=== PATIENT | male | born 1945 | race Caucasian/White ===

== ENCOUNTER 2019-02-11 09:06 | Day surgery (SDC) | payer OTHER ==
[~2019-02-11 09:06] MED LIST: BUPIVACAINE HCL 0.75% INJ/PF (7.5 MG/1 ML) 10 ML SDV OS PRN; KETOROLAC TROMETHAMINE 0.45% 4 DROP/0.4 ML DROPERETTE OS PRN; LIDOCAINE 4% INJ/PF (40 MG/ML) 5 ML AMPUL OS PRN
[2019-02-11] MEDS: TROPICAMIDE 1% OPH SOLN 15 ML OS PRN ×3 (10:15→10:35)
[2019-02-11] MEDS: BESIFLOXACIN HCL 0.6% OPH SUSP 5 ML BOTTLE OS PRN ×5 (10:15→11:25)
[2019-02-11] MEDS: CYCLOPENTOLATE 0.2%/PHENYLEPHRINE 1% OPH SOLN 2 ML OS PRN ×3 (10:15→10:35)
[2019-02-11] MEDS: TETRACAINE HCL 0.5% OPH SOLN 4 ML OS PRN ×3 (10:16→10:53)
[2019-02-11] MEDS ORDERED: MIDAZOLAM 2 MG/2 ML INJ ONE (10:52)
[2019-02-11] MEDS: LIDOCAINE 1% INJ-PF (10 MG/ML) 30 ML SDV ONE ×2 (11:10)
[2019-02-11] MEDS: CHONDR SU A NA/HYALUR INTRAOC KIT (SURGICARE) ONE ×2 (11:10)
[2019-02-11] MEDS: EPINEPHRINE INJ/PF 1 MG/1 ML AMPULE ONE ×2 (11:10)
[2019-02-11] MEDS: DORZOLAMIDE HCL 2%/TIMOLOL MALEAT 0.5% OPH SOLN 10 ML OS PRN ×3 (11:24→11:25)
--- NOTE | 2019-02-11 18:58 | Operative Report ---
Operative Report-[facility] Operative Report: DATE OF SURGERY: 02/11/2019 PREOPERATIVE DIAGNOSIS: CATARACT, LEFT EYE. POSTOPERATIVE DIAGNOSIS: CATARACT, LEFT EYE. PROCEDURE PERFORMED: PHACOEMULSIFICATION WITH POSTERIOR CHAMBER INTRAOCULAR LENS, LEFT EYE. Intraocular Lens Model : MX 10C010 18.5 Total Phaco Time: 0.62 CDE SURGEON: PATRICE ORDONEZ MD ANESTHESIA: TOPICAL WITH MAC. INDICATIONS FOR SURGERY: Difficulty with small print PROCEDURE: The patient was brought to the Operating Room and placed in a seated position. a lid speculum was placed in the eye. the 0.180, and 270 degree axis of the cornea was marked with a toric marker. the patien was place in a reclining position. Following tetracaine drops, topical anesthesia was administered. This consisted of instrument wipe pledgets soaked in a solution of 4% Xylocaine mixed with 0.75% Marcaine in a 1:2 ratio. A 2 x 1 cm pledget was placed in the superior fornix. A 1 x 1 cm pledget was placed in the inferior fornix. The eye was patched shut for 5 minutes. The patch was removed. The eye was sterilely prepped and draped in the usual manner. Lid speculum was placed in the eye. The pledgets were removed. 4-0 black silk sutures were placed around the superior and the inferior rectus muscles to be used as traction. A conjunctival peritomy was made at the 10 o'clock position. Hemostasis was obtained with bipolar cautery. A posterior limbal groove was created using a crescent knife and dissected anteriorly towards the cornea. A sharp point blade was used to create a paracentesis site at the 2 o'clock position. 0.2 cc non preserved Lidocaine was injected into the anterior chamber. A 2.4 mm keratome was used to enter the anterior chamber through the groove. Viscoelastic was injected into the anteriorchamber. An anterior capsulotomy was performed using Utrata forceps in acapsulorrhexis fashion. Hydrodissection and hydrodelineation were performed. Phacoemulsification was performed in [id number]-[id number] technique. Following this, the I/A unit was used to remove residual cortex. Viscoelastic was injected into the capsular bag. The Intraocular lens was placed in the capsular bag. The 15 degree axis of the eye was marked using a toric marker and the previously marked sites as reference. The lens was centered at this axis. The I/A unit was used to remove residual viscoelastic. The wound was seen to be watertight under high and low pressure, and no sutures were placed. The intraocular lens was well centered. The pressure was adjusted in the eye to normal pressure. The 4-0 black silk sutures and lid speculum were removed. The eye was shielded after Besivance and Cosopt drops were placed. The patient tolerated the procedure well and was sent to the Recovery Room in good condition.
== END 2019-02-11 12:15 | disposition home or self-care (01) ==
LOC: SC 09:06
PROVIDERS: ATTEND Ophthalmology
DX: H25.813 Combined forms of age-related cataract, bilateral (principal); H43.813 Vitreous degeneration, bilateral; H52.4 Presbyopia; H04.123 Dry eye syndrome of bilateral lacrimal glands; Z87.891 Personal history of nicotine dependence; E78.00 Pure hypercholesterolemia, unspecified; I25.2 Old myocardial infarction; I11.9 Hypertensive heart disease without heart failure; Z79.899 Other long term (current) drug therapy; Z79.02 Long term (current) use of antithrombotics/antiplatelets; Z79.01 Long term (current) use of anticoagulants
CPT/HCPCS: 66984; 00142; J2250; J3490 ×5; J0171; 142; V2787

== ENCOUNTER 2019-03-09 09:46 | Day surgery (SDC) | payer OTHER ==
[~2019-03-09 09:46] MED LIST changes: +BUPIVACAINE HCL 0.75% INJ/PF (7.5 MG/1 ML) 10 ML SDV OD PRN; -BUPIVACAINE HCL 0.75% INJ/PF (7.5 MG/1 ML) 10 ML SDV OS PRN; +KETOROLAC TROMETHAMINE 0.45% 4 DROP/0.4 ML DROPERETTE OD PRN; -KETOROLAC TROMETHAMINE 0.45% 4 DROP/0.4 ML DROPERETTE OS PRN; +LIDOCAINE 4% INJ/PF (40 MG/ML) 5 ML AMPUL OD PRN; -LIDOCAINE 4% INJ/PF (40 MG/ML) 5 ML AMPUL OS PRN
[2019-03-09] MEDS ORDERED: MIDAZOLAM 2 MG/2 ML INJ ONE (10:34)
[2019-03-09] MEDS: TETRACAINE HCL 0.5% OPH SOLN 4 ML OD PRN ×3 (11:00→11:39)
[2019-03-09] MEDS: CYCLOPENTOLATE 0.2%/PHENYLEPHRINE 1% OPH SOLN 2 ML OD PRN ×3 (11:00→11:20)
[2019-03-09] MEDS: BESIFLOXACIN HCL 0.6% OPH SUSP 5 ML BOTTLE OD PRN ×4 (11:00→12:09)
[2019-03-09] MEDS: TROPICAMIDE 1% OPH SOLN 15 ML OD PRN ×3 (11:00→11:20)
[2019-03-09] MEDS: CHONDR SU A NA/HYALUR INTRAOC KIT (SURGICARE) ONE ×2 (11:52)
[2019-03-09] MEDS: LIDOCAINE 1% INJ-PF (10 MG/ML) 30 ML SDV ONE ×2 (11:52)
[2019-03-09] MEDS: EPINEPHRINE INJ/PF 1 MG/1 ML AMPULE ONE ×2 (11:52)
[2019-03-09] MEDS: DORZOLAMIDE HCL 2%/TIMOLOL MALEAT 0.5% OPH SOLN 10 ML OD PRN ×2 (12:09)
--- NOTE | 2019-03-09 16:40 | Operative Report ---
Operative Report-[facility] Operative Report: DATE OF SURGERY: September 06, 2018 PREOPERATIVE DIAGNOSIS: CATARACT, RIGHT EYE. POSTOPERATIVE DIAGNOSIS: CATARACT,RIGHT EYE. PROCEDURE PERFORMED: PHACOEMULSIFICATION WITH TORIC POSTERIOR CHAMBER INTRAOCULAR LENS, RIGHT EYE. Intraocular Lens Model : MX 60 T2 200 19.0 Total Phaco Time: [] SURGEON: PATRICE ORDONEZ MD ANESTHESIA: TOPICAL WITH MAC. INDICATIONS FOR SURGERY: Difficulty with night driving PROCEDURE: The patient was brought to the Operating Room and placed in a seated position. a lid speculum was placed in the eye. the 0.180, and 270 degree axis of the cornea was marked with a toric marker. the patien was place in a reclining position. Following tetracaine drops, topical anesthesia was administered. This consisted of instrument wipe pledgets soaked in a solution of 4% Xylocaine mixed with 0.75% Marcaine in a 1:2 ratio. A 2 x 1 cm pledget was placed in the superior fornix. A 1 x 1 cm pledget was placed in the inferior fornix. The eye was patched shut for 5 minutes. The patch was removed. The eye was sterilely prepped and draped in the usual manner. Lid speculum was placed in the eye. The pledgets were removed. 4-0 black silk sutures were placed around the superior and the inferior rectus muscles to be used as traction. A conjunctival peritomy was made at the 10 o'clock position. Hemostasis was obtained with bipolar cautery. A posterior limbal groove was created using a crescent knife and dissected anteriorly towards the cornea. A sharp point blade was used to create a paracentesis site at the 2 o'clock position. 0.2 cc non preserved Lidocaine was injected into the anterior chamber. A 2.4 mm keratome was used to enter the anterior chamber through the groove. Viscoelastic was injected into the anteriorchamber. An anterior capsulotomy was performed using Utrata forceps in acapsulorrhexis fashion. Hydrodissection and hydrodelineation were performed. Phacoemulsification was performed in [id number] technique. Following this, the I/A unit was used to remove residual cortex. Viscoelastic was injected into the capsular bag. The Intraocular lens was placed in the capsular bag. The 175 degree axis of the eye was marked using a toric marker and the previously marked sites as reference. The lens was centered at this axis. The I/A unit was used to remove residual viscoelastic. The wound was seen to be watertight under high and low pressure, and no sutures were placed. The intraocular lens was well centered. The pressure was adjusted in the eye to normal pressure. The 4-0 black silk sutures and lid speculum were removed. The eye was shielded after Besivance and Cosopt drops were placed. The patient tolerated the procedure well and was sent to the Recovery Room in good condition.
== END 2019-03-09 12:52 ==
LOC: SC 09:46
PROVIDERS: ATTEND Ophthalmology
DX: H25.811 Combined forms of age-related cataract, right eye (principal); Z96.1 Presence of intraocular lens; I10 Essential (primary) hypertension; K21.9 Gastro-esophageal reflux disease without esophagitis; I48.91 Unspecified atrial fibrillation; Z79.02 Long term (current) use of antithrombotics/antiplatelets
CPT/HCPCS: 66984; V2787; J2250; J3490 ×5; J0171

== ENCOUNTER 2019-11-26 12:19 | Emergency (ER) | payer OTHER ==
--- NOTE | 2019-11-26 13:20 | ER Document Report ---
ED Medical Screen (RME) - General Chief Complaint: Finger Injury Stated Complaint: RIGHT PINKY FINGER PAIN,SWELLING Time Seen by Provider: 11/26/19 13:11 Primary Care Provider: [facility] [Primary Care Provider] - Follow up as needed TRAVEL OUTSIDE OF THE [place] IN LAST 30 DAYS: No - HPI Notes: 11/26/19 13:17 74 male with a history of hypertension hypercholesterolemia hypothyroidism, A. fib on Eliquis presents to the emergency room from [facility] for complaints of right fifth finger "dissolved". Patient states that he has a "bone infection was sent over for intravenous antibiotics". Patient states that he noticed about 2 days ago his right fifth finger with redness, swelling and pain. Denies any trauma or injury. Has not tried any [id number]-[id number] medications. Pain is 3 out of 5. Has a history of peripheral neuropathies in his right hand. Denies any fevers or chills, chest pain, shortness of breath. I have greeted and performed a rapid initial assessment of this patient. A comprehensive ED assessment and evaluation of the patient, analysis of test results and completion of the medical decision making process will be conducted by additional ED providers. PHYSICAL EXAMINATION: GENERAL: Well-appearing, well-nourished and in no acute distress.ait. SKIN: Warm, Dry, normal turgor, no rashes or lesions noted. Right fifth finger in flexed state with erythema induration warmth to touch at distal tip that extends up to the PIP. pain with palpation. cap refill < 3 seconds. Pain with active extension - Related Data Allergies/Adverse Reactions: Sulfa (Sulfonamide Antibiotics) Adverse Reaction (Verified 11/26/19 13:11) Past Medical History - Social History Chew tobacco use (# tins/day): No Drug Abuse: None - Past Medical History Cardiac Medical History: Reports: Hx Heart Attack - 06/2017, Hx Hypertension Pulmonary Medical History: Denies: Hx Asthma Neurological Medical History: Denies: Hx Cerebrovascular Accident, Hx Seizures GI Medical History: Denies: Hx Hepatitis, Hx Hiatal Hernia, Hx Ulcer Infectious Medical History: Denies: Hx Hepatitis Past Surgical History: Denies: Hx Open Heart Surgery - STENTS X4, Hx Pacemaker Physical Exam - Vital signs Vitals: Temp Pulse Resp BP Pulse Ox 98.5 F 94 18 130/68 H 97 11/26/19 12:27 11/26/19 12:27 11/26/19 12:27 11/26/19 12:27 11/26/19 12:27 Course - Vital Signs Vital signs: Temp Pulse Resp BP Pulse Ox 98.5 F 94 18 130/68 H 97 11/26/19 12:27 11/26/19 12:27 11/26/19 12:27 11/26/19 12:27 11/26/19 12:27 Doctor's Discharge - Discharge [facility]errals: [facility] [[facility]] - Follow up as needed
[2019-11-26 13:38] LABS: ABSOLUTE LYMPHOCYTES (AUTO) 1.1 10^3/uL (0.5-4.7); ABSOLUTE MONOCYTES (AUTO) 0.5 10^3/uL (0.1-1.4); ABSOLUTE NEUT (AUTO) 4.4 10^3/uL (1.7-8.2); BASOPHILS % (AUTO) 0.8 % (0-2); EOSINOPHILS % (AUTO) 0.7 % (0-6); HEMATOCRIT 41.1 % (37.9-51.0); HEMOGLOBIN 14.6 g/dL (13.5-17.0); LYMPHOCYTES % (AUTO) 18.3 % (13-45); MEAN CORPUSCULAR HEMOGLOBIN 32.2 pg (27.0-33.4); MEAN CORPUSCULAR HGB CONC 35.4 g/dL (32.0-36.0); MEAN CORPUSCULAR VOLUME 91 fl (80-97); MONOCYTES % (AUTO) 8.7 % (3-13); PLATELET COUNT 139 10^3/uL (150-450); RED BLOOD COUNT 4.52 10^6/uL (4.35-5.55); RED CELL DISTRIBUTION WIDTH 14.3 % (11.5-14.0); SEGMENTED NEUTROPHILS % (AUTO) 71.5 % (42-78); TOTAL CELLS COUNTED % (AUTO) 100 %; WHITE BLOOD COUNT 6.1 10^3/uL (4.0-10.5)
[2019-11-26 14:03] LABS: ALBUMIN 4.5 g/dL (3.5-5.0); ALKALINE PHOSPHATASE 83 U/L (38-126); ANION GAP 8 (5-19); ASPARTATE AMINO TRANSFERASE 26 U/L (17-59); BILIRUBIN,TOTAL 2.3 mg/dL (0.2-1.3); BLOOD UREA NITROGEN 14 mg/dL (7-20); CALCIUM 9.5 mg/dL (8.4-10.2); CARBON DIOXIDE 30 mmol/L (22-30); CHLORIDE 99 mmol/L (98-107); GLUCOSE 101 mg/dL (75-110); POTASSIUM 4.2 mmol/L (3.6-5.0); TOTAL PROTEIN 7.5 g/dL (6.3-8.2)
--- NOTE | 2019-11-26 14:27 | RADIOLOGY REPORT (SQ) ---
EXAM DESCRIPTION: FINGER RIGHT IMAGES COMPLETED DATE/TIME: 11/26/2019 1:33 pm REASON FOR STUDY: 5th finger pain, swelling x 2 days COMPARISON: None. NUMBER OF VIEWS: Three views of the right pinky finger. LIMITATIONS: Pinky finger is slightly flexed FINDINGS: Osteopenic. DIP joint arthropathy. There are erosions and cysts particularly in the dist al aspect of the middle phalanx. Lateral view shows dorsal prominent osteophyte formation as well. There is regional soft tissue swelling no associated fracture. No radiopaque foreign body. OTHER: No other significant finding. IMPRESSION: 1. Arthropathy in the DIP joint looks inflammatory. There is degenerative spurring, this could repre sent erosive osteoarthritis. The differential also includes inflammatory arthritis/gout, however. I nfection is in the differential but felt to be less likely. TECHNICAL DOCUMENTATION: JOB ID: [id number] Reading location - IP/workstation name: [email or web address]
[2019-11-26] MEDS ORDERED: CEFTRIAXONE INJ 1000 MG VIAL IM ONE (15:20)
--- NOTE | 2019-11-26 15:26 | ER Document Report ---
ED General - General Chief Complaint: Finger Injury Stated Complaint: RIGHT PINKY FINGER PAIN,SWELLING Time Seen by Provider: 11/26/19 13:11 Primary Care Provider: [facility] [Primary Care Provider] - Follow up as needed Notes: Patient is a 74-year-old white male with no significant past medical history who presents to the emergency department with a chief complaint of swollen I have treated and performed a rapid initial assessment of this patient. A comprehensive ED assessment and evaluation of the patient, analysis of test results and completion of medical decision making process will be conducted by additional ED providers. PHYSICAL EXAMINATION: GENERAL: Well-appearing, well-nourished and in no acute distress. A&Ox4. Answers questions appropriately. Right fifth digit that he noticed 2 days ago. 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 He states that he was doing some working with his hands a few days ago but does not recall any specific injuries. He reports that 2 days ago he noticed the finger was red and swollen. He states he subsequently bumped it on the edge of the fridge after the redness and swelling began causing a small abrasion over the dorsal surface of the DIP. He states there is been no drainage. He admits that there is some tenderness but due to lack of sensation from prior nerve injury he does not feel much pain. He reports no fevers chills or night sweats. No numbness tingling or weakness outside of his chronic neurological issues. States he was seen in urgent care prior to arrival had x- rays and they were concerned for osteomyelitis so they sent in for evaluation. TRAVEL OUTSIDE OF THE [place] IN LAST 30 DAYS: No - Related Data Allergies/Adverse Reactions: Sulfa (Sulfonamide Antibiotics) Adverse Reaction (Verified 11/26/19 13:11) Past Medical History - Social History Smoking Status: Never Smoker Chew tobacco use (# tins/day): No Drug Abuse: None Family History: Reviewed & Not Pertinent Patient has homicidal ideation: No - Past Medical History Cardiac Medical History: Reports: Hx Heart Attack - 06/2017, Hx Hypertension Pulmonary Medical History: Denies: Hx Asthma Neurological Medical History: Denies: Hx Cerebrovascular Accident, Hx Seizures GI Medical History: Denies: Hx Hepatitis, Hx Hiatal Hernia, Hx Ulcer Infectious Medical History: Denies: Hx Hepatitis Past Surgical History: Denies: Hx Open Heart Surgery - STENTS X4, Hx Pacemaker Review of Systems - Review of Systems Constitutional: denies: Fever EENT: denies: Throat pain Cardiovascular: denies: Chest pain Respiratory: denies: Short of breath Gastrointestinal: denies: Abdominal pain, Diarrhea, Nausea, Vomiting, Constipation Musculoskeletal: Joint pain Skin: Change in color Neurological/Psychological: denies: Headaches Physical Exam - Vital signs Vitals: Temp Pulse Resp BP Pulse Ox 98.5 F 94 18 130/68 H 97 11/26/19 12:11/26/19 12:11/26/19 12:11/26/19 12:11/26/19 12:27 - General General appearance: Appears well, Alert In distress: None - Respiratory Respiratory status: No respiratory distress Chest status: Nontender Breath sounds: Normal Chest palpation: Normal - Cardiovascular Rhythm: Regular Heart sounds: Normal auscultation - Extremities Hand: Other - Slight flexion of the right fifth digit the patient reports is chronic from his prior nerve injury in the forearm. No worsening in his chronic flexion deformity. The digit is moderately edematous with erythema. No evidence of felon or paronychia. Consistent with a cellulitis appearance. There is some pain with movement. Good capillary refill distally. No proximal streaking is noted. No fluid collection appreciated. - Neurological Neuro grossly intact: Yes Cognition: Normal Orientation: AAOx4 - Psychological Associated symptoms: Normal affect, Normal mood - Skin Skin Temperature: Warm Skin Moisture: Dry Skin Color: Other - As described above Course - Re-evaluation Re-evalutation: 11/26/19 15:24 Normal white count. Normal lactic acid. Per x-ray and read from radiologist coupled with patient's history significantly doubt osteomyelitis. Questionable early cellulitis with underlying non-associated inflammatory arthritis pr tino. Gout is also in the etiology. We will treat with antibiotics and Indocin. He will follow-up with his doctors in 48 hours for reevaluation. Advised to return here or any ER immediately with any new, persistent or worsening symptoms. He verbalized understood and agreed. - Vital Signs Vital signs: Temp Pulse Resp BP Pulse Ox 98.5 F 94 18 130/68 H 97 11/26/19 12:11/26/19 12:11/26/19 12:11/26/19 12:11/26/19 12:27 - Laboratory Result Diagrams: 11/26/19 13:25 11/26/19 13:25 Laboratory results interpreted by me: 11/26/19 11/26/19 13:25 13:25 RDW 14.3 H Plt Count 139 L Sodium 136.5 L Total Bilirubin 2.3 H Discharge - Discharge Clinical Impression: Cellulitis Qualifiers: Site of cellulitis: unspecified site Qualified Code(s): L03.90 - Cellulitis, unspecified Condition: Stable Disposition: HOME, SELF-CARE Instructions: Cellulitis ([facility]), Gout ([facility]) Additional Instructions: Follow-up with your regular doctor in 2 to 3 days for reevaluation. Return here or any ER immediately with any new, persistent or worsening symptoms. Prescriptions: Indomethacin [Indocin 50 mg Capsule] 50 mg PO TID #15 capsule Cephalexin Monohydrate [Keflex 500 mg Capsule] 500 mg PO Q6H 7 Days #40 capsule [facility]errals: [facility] [Primary Care [facility]] - Follow up as needed
[2019-11-26] MEDS ORDERED: LIDOCAINE 1% INJ-PF (10 MG/ML) 30 ML SDV ONE (17:13)
[2019-11-26 17:17] VITALS: BP 116/82
== END 2019-11-26 17:55 | disposition home or self-care (01) ==
LOC: ER 12:19
DX: L03.90 Cellulitis, unspecified (principal); M79.644 Pain in right finger(s); M25.50 Pain in unspecified joint; I10 Essential (primary) hypertension
CPT/HCPCS: 99283; 96372; 36415; 83605; 85025; 80053; 73140; J3490; J0696

== ENCOUNTER 2019-12-02 15:49 | Inpatient (IN) | payer OTHER, MEDICARE ==
--- NOTE | 2019-12-02 17:12 | ER Document Report ---
ED Medical Screen (RME) - General Chief Complaint: Hand Pain Stated Complaint: RIGHT FINGER INFECTION Time Seen by Provider: 12/02/19 17:07 Primary Care Provider: TIM[facility]U [Primary Care Provider] - Follow up as needed Mode of Arrival: Ambulatory Information source: Patient Notes: 74-year-old male male presented to ED with very infected right fifth finger. He states he was working with metal on Friday he thought he might of got a piece of metal in it went to the urgent care they x-rayed told him there was no metal in it and sent him home with with no medications. On 25 November he came into the emergency room he had x-ray blood work were done and patient was started on antibiotics. He was told that if he had any increasing pain or increasing symptoms he needed to follow-up with his primary care who was the [facility]. He said he is been taking the antibiotics as prescribed he is not allowed to take to the Indocin due to his cardiac history as cardiac allergies told him not to. He has no movement to the finger now he can move it at the hand but he is finger is stiff very swollen and very inflamed. We will get further blood work and x-ray and have him examined by another provider. I have greeted and performed a rapid initial assessment of this patient. A comprehensive ED assessment and evaluation of the patient, analysis of test results and completion of medical decision making process will be conducted by an additional ED providers. TRAVEL OUTSIDE OF THE [place] IN LAST 30 DAYS: No - Related Data Allergies/Adverse Reactions: Sulfa (Sulfonamide Antibiotics) Adverse Reaction (Verified 11/26/19 13:11) Past Medical History - Past Medical History Cardiac Medical History: Reports: Hx Heart Attack - 06/2017, Hx Hypertension Pulmonary Medical History: Denies: Hx Asthma Neurological Medical History: Denies: Hx Cerebrovascular Accident, Hx Seizures GI Medical History: Denies: Hx Hepatitis, Hx Hiatal Hernia, Hx Ulcer Infectious Medical History: Denies: Hx Hepatitis Past Surgical History: Denies: Hx Open Heart Surgery - STENTS X4, Hx Pacemaker Physical Exam - Vital signs Vitals: Temp Pulse Resp BP 98.4 F 73 18 115/63 12/02/19 16:41 12/02/19 16:41 12/02/19 16:41 12/02/19 16:41 Course - Vital Signs Vital signs: Temp Pulse Resp BP Pulse Ox 98.4 F 73 18 115/63 12/02/19 16:41 12/02/19 16:41 12/02/19 16:41 12/02/19 16:41 Doctor's Discharge - Discharge [facility]errals: [facility] [[facility]] - Follow up as needed
[2019-12-02 17:45] LABS: ABSOLUTE EOSINOPHILS # (AUTO) 0.1 10^3/uL (0.0-0.6); ABSOLUTE LYMPHOCYTES (AUTO) 1.6 10^3/uL (0.5-4.7); ABSOLUTE MONOCYTES (AUTO) 0.6 10^3/uL (0.1-1.4); ABSOLUTE NEUT (AUTO) 5.3 10^3/uL (1.7-8.2); BASOPHILS % (AUTO) 0.5 % (0-2); EOSINOPHILS % (AUTO) 1.6 % (0-6); HEMATOCRIT 42.9 % (37.9-51.0); HEMOGLOBIN 15.1 g/dL (13.5-17.0); LYMPHOCYTES % (AUTO) 20.8 % (13-45); MEAN CORPUSCULAR HEMOGLOBIN 32.2 pg (27.0-33.4); MEAN CORPUSCULAR HGB CONC 35.2 g/dL (32.0-36.0); MEAN CORPUSCULAR VOLUME 91 fl (80-97); MONOCYTES % (AUTO) 8.2 % (3-13); PLATELET COUNT 173 10^3/uL (150-450); RED CELL DISTRIBUTION WIDTH 14.2 % (11.5-14.0); SEGMENTED NEUTROPHILS % (AUTO) 68.9 % (42-78); TOTAL CELLS COUNTED % (AUTO) 100 %; WHITE BLOOD COUNT 7.6 10^3/uL (4.0-10.5)
--- NOTE | 2019-12-02 17:52 | RADIOLOGY REPORT (SQ) ---
EXAM DESCRIPTION: HAND RIGHT 3 VIEWS IMAGES COMPLETED DATE/TIME: 12/02/2019 5:24 pm REASON FOR STUDY: pain swelling infection right 5th finger COMPARISON: 11/26/2019. EXAM PARAMETERS: NUMBER OF VIEWS: Three views. TECHNIQUE: AP, lateral and oblique radiographic images acquired of the right hand. LIMITATIONS: None. FINDINGS: MINERALIZATION: Normal. BONES: Again seen are erosive and destructive changes in the distal middle phalanx and in the distal phalanx of the 5th finger. There is now a pathologic fracture of the distal phalanx. JOINTS: No effusions. SOFT TISSUES: Diffuse soft tissue swelling. No radiopaque foreign body. OTHER: No other significant finding. IMPRESSION: PROGRESSIVE EROSIVE CHANGES IN THE MIDDLE PHALANX AND DISTAL PHALANX OF THE 5TH FINGER W ITH DEVELOPMENT OF A PATHOLOGIC FRACTURE THROUGH THE DISTAL PHALANX. ASSOCIATED SOFT TISSUE SWELLING . DIFFERENTIAL INCLUDES INFECTION WITH OSTEOMYELITIS VERSUS INFLAMMATORY EROSIVE ARTHROPATHY. TECHNICAL DOCUMENTATION: JOB ID: [id number] 2010 [employer]- All Rights Reserved Reading location - IP/workstation name: [email or web address]
[2019-12-02 18:06] LABS: ALBUMIN 4.6 g/dL (3.5-5.0); ALKALINE PHOSPHATASE 80 U/L (38-126); ANION GAP 7 (5-19); ASPARTATE AMINO TRANSFERASE 33 U/L (17-59); BILIRUBIN,TOTAL 1.5 mg/dL (0.2-1.3); BLOOD UREA NITROGEN 18 mg/dL (7-20); CALCIUM 9.4 mg/dL (8.4-10.2); CARBON DIOXIDE 30 mmol/L (22-30); CHLORIDE 99 mmol/L (98-107); GLUCOSE 131 mg/dL (75-110); POTASSIUM 4.6 mmol/L (3.6-5.0)
[2019-12-02 18:29] LABS: ERYTHROCYTE SEDIMENTATION RATE 22 mm/hr (0-20)
[2019-12-02] MEDS ORDERED: VANCOMYCIN HCL INJ 1000 MG VIAL IV ONE (19:37)
[2019-12-02] MEDS ORDERED: PIPERACILLIN/TAZOBACTAM 3.375 GM VIAL IV ONE (19:37)
--- NOTE | 2019-12-02 19:43 | ER Document Report ---
ED Hand/Wrist Injury - General Chief Complaint: Hand Pain Stated Complaint: RIGHT FINGER INFECTION Time Seen by Provider: 12/02/19 17:07 Mode of Arrival: Ambulatory Information source: Patient Notes: 74-year-old male past medical history significant for coronary artery disease with stents and hypertension currently on both Plavix and Eliquis presents to the emergency room with worsening erythema and swelling to his right fifth finger. Patient states 1 week ago while he was working with metal at home he is unsure how he may have injured it but he woke up the next morning with redness and swelling. States he went to an urgent care had negative x-rays. States he was seen here on Friday had more x-rays and lab work was sent home on Keflex and outpatient follow-up with primary care physician. Patient returns to the emergency room today with increasing redness and swelling no fevers. Not improving on the Keflex. Has not followed up with primary care physician as he goes to the [place] and all his visits are currently done via phone. States he is still currently on his Keflex. TRAVEL OUTSIDE OF THE [place] IN LAST 30 DAYS: No - Related Data Allergies/Adverse Reactions: Sulfa (Sulfonamide Antibiotics) Adverse Reaction (Verified 11/26/19 13:11) Home Medications: see copy of patient list on chart Past Medical History - General Information source: Patient - Social History Smoking Status: Never Smoker Chew tobacco use (# tins/day): No Frequency of alcohol use: 3 beers daily Drug Abuse: None Family History: Reviewed & Not Pertinent Patient has homicidal ideation: No - Past Medical History Cardiac Medical History: Reports: Hx Atrial Fibrillation, Hx Heart Attack - 06/2017, Hx Hypercholesterolemia, Hx Hypertension Pulmonary Medical History: Denies: Hx Asthma Neurological Medical History: Denies: Hx Cerebrovascular Accident, Hx Seizures Endocrine Medical History: Denies: Hx Diabetes Mellitus Type 1, Hx Diabetes Mellitus Type 2 GI Medical History: Reports: Hx Gastroesophageal Reflux Disease. Denies: Hx Hepatitis, Hx Hiatal Hernia, Hx Ulcer Infectious Medical History: Denies: Hx Hepatitis Past Surgical History: Reports: Hx Cardiac Catheterization - 4 stents, Hx Orthopedic Surgery - rt forearm. Denies: Hx Open Heart Surgery - STENTS X4, Hx Pacemaker Review of Systems - Review of Systems Constitutional: No symptoms reported Cardiovascular: No symptoms reported Respiratory: No symptoms reported Musculoskeletal: Joint pain Skin: Other - Erythema, swelling Hematologic/Lymphatic: No symptoms reported Neurological/Psychological: No symptoms reported -: Yes All other systems reviewed and negative Physical Exam - Vital signs Vitals: Temp Pulse Resp BP 98.4 F 73 18 115/63 12/02/19 16:41 12/02/19 16:41 12/02/19 16:41 12/02/19 16:41 - General General appearance: Appears well In distress: Mild - Respiratory Respiratory status: No respiratory distress Chest status: Nontender Breath sounds: Normal Chest palpation: Normal - Cardiovascular Rhythm: Regular Heart sounds: Normal auscultation Murmur: No - Extremities General lower extremity: Normal inspection Hand: Tender - Right fifth finger with erythema, swelling, deformed at the right fifth DIP joint. Unable to fully flex and extend fingers secondary to pain and swelling., Deformity, Swelling - Neurological Neuro grossly intact: Yes Cognition: Normal Orientation: AAOx4 Efra Coma Scale Eye Opening: Spontaneous Bullard Coma Scale Verbal: Oriented Efra Coma Scale Motor: Obeys Commands Bullard Coma Scale Total: 15 Speech: Normal Motor strength normal: LUE, LLE, RLE Sensory: Normal Notes: Positive right radial pulse. Unable to flex and extend right fifth finger secondary to pain and swelling - Skin Skin Temperature: Warm Skin Moisture: Dry Skin Color: Erythema Skin irregularity: Erythema, Tender indurated area Location of irregularity: Extremities Irregularity with: Swelling, Tenderness Course - Re-evaluation Re-evalutation: 12/02/19 19:49 All test results were reviewed with the patient. He is aware of need for admission. Patient is requesting pain medication. All medications were ordered as well as a COVID-19 testing secondary to going to the OR in the morning. Patient is aware that he will be seen by orthopedist Dr. Graves tomorrow and Dr. Reaves, hospitalist will see him tonight. All questions were answered. Patient agrees to plan of care. - Vital Signs Vital signs: Temp Pulse Resp BP Pulse Ox 97.6 F 67 17 134/71 H 96 12/02/19 20:14 12/02/19 20:14 12/02/19 20:14 12/02/19 20:14 12/02/19 20:14 - Laboratory Result Diagrams: 12/02/19 17:25 12/02/19 17:25 Laboratory results interpreted by me: 12/02/19 12/02/19 17:25 17:25 RDW 14.2 H ESR 22 H Sodium 136.0 L Glucose 131 H Total Bilirubin 1.5 H - Consults Dr. Graves Time consulted: 19:21 Reason for consultation: 12/02/19 19:37 Reviewed all lab and x-ray results with Dr. Graves at length. Dr. Graves will take patient to the OR in the morning. Would like patient admitted to medicine. Would like patient started on IV vancomycin as well as IV Zosyn. N.p.o. after midnight. Consulted provider: will see as inpatient Dr. Reaves Time consulted: 19:33 Reason for consultation: 12/02/19 19:38 Discussed case with hospitalist Dr. Reaves. Aware that patient will be taken to the OR tomorrow by Dr. Graves. Patient to be admitted to hospitalist for medical management. Dr. Reaves will come to the emergency room to see the patient. Consulted provider: will come to ER Discharge - Discharge Clinical Impression: Pathological fracture, right finger(s), initial encounter for fracture, Finger osteomyelitis, right Condition: Stable Disposition: ADMITTED INPATIENT Admitting Provider: Jelly (Hospitalist) Unit Admitted: Telemetry
[2019-12-02] MEDS ORDERED: ONDANSETRON HCL INJ/PF 4 MG/2 ML SDV IV ONE (19:48)
[2019-12-02] MEDS ORDERED: MORPHINE SULFATE 10 MG/ML INJ IV ONE (19:48)
[2019-12-02 19:53] LABS: INTERNATIONAL RATION (INR) 1.11; PROTHROMBIN TIME 14.5 SEC (11.4-15.4)
[2019-12-02] MEDS ORDERED: ACETAMINOPHEN 325 MG TABLET PO PRN (20:05)
[2019-12-02] MEDS ORDERED: VANCOMYCIN HCL 0 MG in DEXTROSE 5%-WATER 250 ML IV NR (20:15)
[2019-12-02] MEDS ORDERED: ONDANSETRON HCL INJ/PF 4 MG/2 ML SDV IV PRN (20:16)
--- NOTE | 2019-12-02 20:38 | PDOC H&P ---
History of Present Illness Admission Date/PCP: 12/02/19 20:01 [facility] History of Present Illness: ANA FISHER is a 74 year old male who was working in his shop last week, and he does not remember injuring his hand, but he said this past Friday he noticed that the fifth digit on his right hand was starting to swell up. He thought he may have dropped something on it and fractured it. He said it continued to swell and get red and so he went to an urgent care and they thought that he might have a bone infection at that time and so they sent him to the ER. Since he had only injured it 2 days before, it was felt that the likelihood of a bone infection was very low. No fracture was seen at that time apparently, but they put him on some Keflex which she has been taking since then. He said it has not gotten better and in fact is gotten worse. He is noticed some pus or fluid coming out from the dorsal surface of the digit in question. He has not had any fever. He said he is otherwise felt well. 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 He was evaluated in the ER and while the finger was obviously infected, x-ray was concerning for osteomyelitis and a pathological fracture was noted. Orthopedics was consulted in the ER and is planning on taking him to the OR tomorrow for surgical treatment. Past Medical History Cardiac Medical History: Reports: Atrial Fibrillation, Myocardial Infarction - 06/2017, Hyperlipidema, Hypertension Pulmonary Medical History: Denies: Asthma Neurological Medical History: Denies: Seizures Endocrine Medical History: Denies: Diabetes Mellitus Type 1, Diabetes Mellitus Type 2 GI Medical History: Reports: Gastroesophageal Reflux Disease Denies: Hepatitis, Hiatal Hernia Hematology: Denies: Anemia, Sickle Cell Disease Past Surgical History Past Surgical History: Reports: Cardiac Catheterization - 4 stents, Orthopedic Surgery - rt forearm Denies: Pacemaker Social History Smoking Status: Never Smoker Electronic Cigarette use?: No Family History Family History: Reviewed & Not Pertinent Parental Family History Reviewed: Yes Children Family History Reviewed: Yes Sibling(s) Family History Reviewed.: Yes Medication/Allergy Home Medications: Apixaban [Eliquis 5 mg Tablet] 5 mg PO BID 02/08/19 Clopidogrel Bisulfate [Plavix 75 mg Tablet] 75 mg PO DAILY 02/08/19 Cyclosporine [Restasis Multidose] 5.5 ml OP .ASDIR PRN 02/08/19 Furosemide [Lasix 20 mg Tablet] 20 mg PO QAM 02/08/19 Gabapentin 600 mg PO DAILY 02/08/19 Hydrocodone Bit/Acetaminophen [Hydrocodon-Acetaminophen 5-325] 1 each PO DAILY PRN 02/08/19 Ketorolac Tromethamine 0.45% [Acuvail 0.45% Oph Soln 0.4 ml/Dropperette] 1 drop OD BID 02/08/19 Metoprolol Succinate [Toprol Xl 50 mg Tab.sr] 50 mg PO BID 02/08/19 Moxifloxacin HCl [Vigamox 0.5% Oph Soln 3 ml] 1 drop OP ASDIR PRN 02/08/19 Omeprazole 20 mg PO DAILY 02/08/19 Prednisolone Acetate [Pred Forte] 1 ml OP .ASDIR 02/08/19 Rosuvastatin Calcium [Crestor 20 mg Tablet] 20 mg PO DAILY 02/08/19 Spironolactone [Aldactone 25 mg Tablet] 25 mg PO DAILY 02/08/19 Valsartan 80 mg PO DAILY 02/08/19 Cephalexin Monohydrate [Keflex 500 mg Capsule] 500 mg PO Q6H 7 Days #40 capsule 11/26/19 Indomethacin [Indocin 50 mg Capsule] 50 mg PO TID #15 capsule 11/26/19 Allergies/Adverse Reactions: Sulfa (Sulfonamide Antibiotics) Adverse Reaction (Verified 11/26/19 13:11) Review of Systems All systems: reviewed and no additional remarkable complaints except as stated - All systems were reviewed and were negative except as noted in the HPI Physical Exam Vital Signs: Temp Pulse Resp BP Pulse Ox 97.6 F 67 17 134/71 H 96 12/02/19 20:14 12/02/19 20:14 12/02/19 20:14 12/02/19 20:14 12/02/19 20:14 Intake & Output 12/01/19 12/02/19 12/03/19 06:59 06:59 06:59 Weight 81 kg General appearance: PRESENT: no acute distress, cooperative Head exam: PRESENT: atraumatic, normocephalic Eye exam: PRESENT: EOMI, PERRLA. ABSENT: conjunctival injection, nystagmus, scleral icterus Ear exam: PRESENT: normal external ear exam Mouth exam: PRESENT: moist, neck supple Throat exam: ABSENT: post pharyngeal erythema Neck exam: PRESENT: full ROM. ABSENT: carotid bruit, JVD, lymphadenopathy, meningismus, tenderness, thyromegaly Respiratory exam: PRESENT: clear to auscultation kady, symmetrical, unlabored. ABSENT: accessory muscle use, chest wall tenderness, crackles, prolonged expiratory phas, rhonchi, tachypnea, wheezes Cardiovascular exam: PRESENT: RRR, +S1, +S2 Pulses: PRESENT: normal carotid pulses Vascular exam: PRESENT: normal capillary refill GI/Abdominal exam: PRESENT: normal bowel sounds, soft. ABSENT: distended, guarding, rebound, tenderness Extremities exam: PRESENT: other - The fifth digit of the right hand is swollen and erythematous. There is area of broken skin immediately proximal to the fingernail on the fifth digit with some oozing of some serosanguineous fluid. ABSENT: clubbing, pedal edema Musculoskeletal exam: PRESENT: ambulatory, normal inspection Neurological exam: PRESENT: alert, awake, oriented to person, oriented to place, oriented to time, oriented to situation, CN II-XII grossly intact, motor sensory deficit - He has some diminished sensation of the right hand which is chronic and he cannot abduct the fingers of the right hand which is also chronic Psychiatric exam: PRESENT: appropriate affect, normal mood Skin exam: PRESENT: dry, warm Results Laboratory Results: 12/02/19 17:25 12/02/19 17:25 12/02/19 12/02/19 17:25 17:25 WBC 7.6 RBC 4.70 Hgb 15.1 Hct 42.9 MCV 91 MCH 32.2 MCHC 35.2 RDW 14.2 H Plt Count 173 Seg Neutrophils % 68.9 Sodium 136.0 L Potassium 4.6 Chloride 99 Carbon Dioxide 30 Anion Gap 7 BUN 18 Creatinine 1.01 Est GFR ( Amer) > 60 Glucose 131 H Calcium 9.4 Total Bilirubin 1.5 H AST 33 Alkaline Phosphatase 80 C-Reactive Protein 10.0 Total Protein 8.0 Albumin 4.6 Impressions: Hand X-Ray 12/02/19 17:13 IMPRESSION: PROGRESSIVE EROSIVE CHANGES IN THE MIDDLE PHALANX AND DISTAL PHALANX OF THE 5TH FINGER WITH DEVELOPMENT OF A PATHOLOGIC FRACTURE THROUGH THE DISTAL PHALANX. ASSOCIATED SOFT TISSUE SWELLING. DIFFERENTIAL INCLUDES INFECTION WITH OSTEOMYELITIS VERSUS INFLAMMATORY EROSIVE ARTHROPATHY. Assessment and Plan - Diagnosis (1) Finger osteomyelitis, right Is this a current diagnosis for this admission?: Yes Plan: 2 OR tomorrow with Ortho for surgical debridement. Empiric vancomycin and Zosyn. blood cultures. We will follow-up on the culture results from surgery tomorrow. (2) Pathological fracture, right finger(s), initial encounter for fracture Is this a current diagnosis for this admission?: Yes Plan: Orthopedics consultation (3) Cellulitis Qualifiers: Site of cellulitis: extremity Site of cellulitis of extremity: finger Laterality: right Qualified Code(s): L03.011 - Cellulitis of right finger Is this a current diagnosis for this admission?: Yes Plan: Empiric antibiotics as previously noted, will follow up on culture results (4) Atrial fibrillation Qualifiers: Atrial fibrillation type: longstanding persistent Qualified Code(s): I48.11 - Longstanding persistent atrial fibrillation Is this a current diagnosis for this admission?: Yes Plan: He was in sinus rhythm on my examination. He takes Eliquis. It also says he takes Plavix on his med rec. Both these medications are held for now. This should be able to be resumed postoperatively. - Time Time Spent with patient: 35 or more minutes Anticipated Discharge Disposition: Home, Self Care Anticipated Discharge Timeframe: within 72 hours - Inpatient Certification Based on my medical assessment, after consideration of the patient's comorbidities, presenting symptoms, or acuity I expect that the services needed warrant INPATIENT care.: Yes I certify that my determination is in accordance with my understanding of Medicare's requirements for reasonable and necessary INPATIENT services [42 CFR 412.3e].: Yes Medical Necessity: Failure to Improve With Outpatient Therapy, Significant Comorbidiites Make Outpatient Treatment Too Risky, Need Close Monitoring Due to Risk of Patient Decompensation, Need For Continuous Telemetry Monitoring, Need for IV Antibiotics, Need for Surgery, Risk of Complication if Not Cared For in Hospital
[2019-12-03] MEDS ORDERED: HYDROCODONE/ACETAMINOPHEN 5-325 MG (6 TAB/ER DISP) PO PRN (02:32)
[2019-12-03] MEDS: PIPERACILLIN SODIUM/TAZOBACTAM 3.375 GM in NORMAL SALINE 100 ML IV SCH ×4 (03:16→22:00)
[2019-12-03 04:44] LABS: HEMATOCRIT 38.8 % (37.9-51.0); HEMOGLOBIN 13.8 g/dL (13.5-17.0); MEAN CORPUSCULAR HEMOGLOBIN 32.6 pg (27.0-33.4); MEAN CORPUSCULAR HGB CONC 35.6 g/dL (32.0-36.0); MEAN CORPUSCULAR VOLUME 91 fl (80-97); PLATELET COUNT 144 10^3/uL (150-450); RED BLOOD COUNT 4.25 10^6/uL (4.35-5.55); RED CELL DISTRIBUTION WIDTH 14.1 % (11.5-14.0); WHITE BLOOD COUNT 4.7 10^3/uL (4.0-10.5)
[2019-12-03 04:58] LABS: ANION GAP 8 (5-19); BLOOD UREA NITROGEN 15 mg/dL (7-20); CALCIUM 8.9 mg/dL (8.4-10.2); CARBON DIOXIDE 28 mmol/L (22-30); CHLORIDE 100 mmol/L (98-107); GLUCOSE 96 mg/dL (75-110)
[2019-12-03] MEDS ORDERED: LEVOTHYROXINE SODIUM 0.075 MG TABLET ONE (06:28)
[2019-12-03] MEDS: PANTOPRAZOLE SODIUM 20 MG TABLET.DR PO SCH (06:38)
[2019-12-03] MEDS: LEVOTHYROXINE SODIUM 0.075 MG TABLET PO SCH (06:38)
[2019-12-03] MEDS ORDERED: KETAMINE HCL INJ 500 MG/10 ML VIAL ONE (07:20)
[2019-12-03] MEDS ORDERED: PROPOFOL INJ 200 MG/20 ML VIAL IV ONE (07:21)
[2019-12-03] MEDS ORDERED: FENTANYL CITRATE INJ/PF 100 MCG/2 ML AMPUL ONE (07:21)
[2019-12-03] MEDS ORDERED: MIDAZOLAM 2 MG/2 ML INJ ONE (07:21)
[2019-12-03] MEDS ORDERED: PROMETHAZINE HCL INJ 25 MG/1 ML VIAL IV PRN ×2 (07:25)
[2019-12-03] MEDS ORDERED: MORPHINE SULFATE 10 MG/ML INJ IV PRN (07:25)
[2019-12-03] MEDS ORDERED: MEPERIDINE HCL/PF INJ 25 MG/1 ML DISP.SYRIN IV PRN (07:25)
[2019-12-03] MEDS ORDERED: FENTANYL CITRATE INJ/PF 100 MCG/2 ML AMPUL IV PRN ×3 (07:25)
[2019-12-03] MEDS ORDERED: DIPHENHYDRAMINE HCL 50 MG/ML VIAL IV PRN (07:25)
[2019-12-03] MEDS ORDERED: BUPIVACAINE HCL 0.5 % INJ/PF 30 ML SDV ONE (07:27)
[2019-12-03] MEDS ORDERED: LIDOCAINE 1%/EPINEPHRINE INJ 20 ML VIAL ONE ×2 (07:27→07:32)
[2019-12-03] MEDS: FUROSEMIDE 20 MG TABLET PO SCH (08:40)
[2019-12-03] MEDS: METOPROLOL SUCCINATE 50 MG TAB.SR.24H PO SCH ×2 (09:54→21:10)
[2019-12-03] MEDS: VANCOMYCIN HCL 750 MG in DEXTROSE 5%-WATER 250 ML IV SCH ×2 (09:54→21:10)
[2019-12-03] MEDS: GABAPENTIN 300 MG CAPSULE PO SCH (09:54)
[2019-12-03] MEDS: VALSARTAN 80 MG TABLET PO SCH (09:54)
[2019-12-03] MEDS: SPIRONOLACTONE 25 MG TABLET PO SCH (09:54)
[2019-12-03] MEDS ORDERED: (PENDING PHARMACY ID) (Rosuvastatin Calcium [Crestor 20 Mg Tablet] 20 MG) PO SCH (10:00)
[2019-12-03] MEDS: HYDROCODONE/ACETAMINOPHEN 5-325 MG TABLET PO PRN ×2 (14:07→21:09)
--- NOTE | 2019-12-03 16:04 | PDOC CONSULTATION ---
Consultation Consult Date: 12/03/19 Provider Consulted: BRITTANIE MARRERO JR History of Present Illness Admission Date/PCP: 12/02/19 20:01 JUDITH EDOUARD MD History of Present Illness: ANA FISHER is a 74 year old male began to have swelling in his right fifth digit at the distal aspect approximately 1 week ago. He went to his local primary care provider provided him with some antibiotics and sent him to the hospital for further evaluation. The subsequent day he went to the hospital where they determined that he did not need any urgent treatment and gave him some antibiotics to take. Over the following week he began to have increasing symptoms. He had swelling, redness, pain. No drainage. He denies any initial puncture wound or other source of infection. He felt that the antibiotics were not leading to any potential benefit and return to the emergency department yesterday. At that time they evaluated him and got an x-ray that demonstrated potential osteomyelitis. He was admitted for antibiotic treatment as well as further potential surgical management. He denies any recent fevers chills nausea night sweats. Patient does have a history of remote gout. This is never occurred in his hand before. He does not take any gout medications at this time. Past Medical History Cardiac Medical History: Reports: Atrial Fibrillation, Myocardial Infarction - 06/2017, Hyperlipidema, Hypertension Pulmonary Medical History: Denies: Asthma Neurological Medical History: Denies: Seizures Endocrine Medical History: Denies: Diabetes Mellitus Type 1, Diabetes Mellitus Type 2 GI Medical History: Reports: Gastroesophageal Reflux Disease Denies: Hepatitis, Hiatal Hernia Psychiatric Medical History: Denies: Depression Hematology: Denies: Anemia, Sickle Cell Disease Past Surgical History Past Surgical History: Reports: Cardiac Catheterization - 4 stents, Orthopedic Surgery - rt forearm Denies: Pacemaker Social History Smoking Status: Never Smoker Electronic Cigarette use?: No Drugs: Marijuana Hx Prescription Drug Abuse: No - Advance Directive Resuscitation Status: Full Code Family History Family History: Reviewed & Not Pertinent Parental Family History Reviewed: No Children Family History Reviewed: NA Sibling(s) Family History Reviewed.: NA Medication/Allergy Home Medications: Apixaban [Eliquis 5 mg Tablet] 5 mg PO BID 02/08/19 Clopidogrel Bisulfate [Plavix 75 mg Tablet] 75 mg PO DAILY 02/08/19 Furosemide [Lasix 20 mg Tablet] 20 mg PO QAM 02/08/19 Gabapentin 600 mg PO DAILY 02/08/19 Hydrocodone Bit/Acetaminophen [Hydrocodon-Acetaminophen 5-325] 1 each PO DAILY PRN 02/08/19 Metoprolol Succinate [Toprol Xl 50 mg Tab.sr] 50 mg PO QHS 02/08/19 Omeprazole 20 mg PO DAILY 02/08/19 Rosuvastatin Calcium [Crestor 20 mg Tablet] 20 mg PO DAILY 02/08/19 Spironolactone [Aldactone 25 mg Tablet] 25 mg PO DAILY 02/08/19 Valsartan 80 mg PO DAILY 02/08/19 Cabergoline 0.5mg Tablet 0.25 mg PO COLEMAN@1000 12/02/19 Levothyroxine Sodium [Synthroid 0.075 mg Tablet] 0.075 mg PO Q6AM 12/02/19 Metoprolol Succinate [Toprol Xl 50 mg Tab.sr] 100 mg PO DAILY 12/02/19 Testosterone [Androgel] 1.25 gm TD DAILY 12/02/19 Allergies/Adverse Reactions: Sulfa (Sulfonamide Antibiotics) Adverse Reaction (Verified 11/26/19 13:11) Review of Systems Review of Systems: Constitutional: ABSENT: anorexia, chills, night sweats Cardiovascular: ABSENT: chest pain Respiratory: ABSENT: dyspnea Gastrointestinal: ABSENT: vomiting Genitourinary: ABSENT: dysuria Integumentary: ABSENT: rash Neurological: ABSENT: confusion, memory loss, numbness Psychiatric: ABSENT: hallucinations Hematologic/Lymphatic: ABSENT: easy bleeding Physical Exam Vital Signs: Temp Pulse Resp BP Pulse Ox 98.3 F 77 16 97/60 L 94 12/03/19 15:19 12/03/19 15:19 12/03/19 15:19 12/03/19 15:19 12/03/19 15:19 Intake & Output 12/02/19 12/03/19 12/04/19 06:59 06:59 06:59 Intake Total 100 1650 Output Total 5 Balance 100 1645 Weight 81 kg Physical Exam: General appearance: PRESENT: no acute distress, cooperative, well-nourished Head exam: PRESENT: atraumatic, normocephalic Eye exam: PRESENT: EOMI Ear exam: PRESENT: normal external ear exam Mouth exam: PRESENT: neck supple Neck exam: ABSENT: tracheal deviation Respiratory exam: PRESENT: symmetrical, unlabored. ABSENT: accessory muscle use, wheezes Pulses: PRESENT: normal radial pulses, normal dorsalis pedis pulse Vascular exam: PRESENT: normal capillary refill GI/Abdominal exam: ABSENT: distended, firm Extremities exam: PRESENT: full ROM of bilateral shoulders, elbows wrists, knees, hips and ankles without pain Musculoskeletal exam: PRESENT: full ROM, normal inspection of all 4 extremities aside from that noted below. Neurological exam: PRESENT: alert, awake, oriented to person, oriented to place, oriented to time Psychiatric exam: PRESENT: appropriate affect. ABSENT: agitated Focused psych exam: ABSENT: catatonic Skin exam: PRESENT: intact. ABSENT: dry All as above aside from that noted in the HPI and the following: Upper extremity sensation grossly intact to radial median and ulnar nerve. upper extremity motor function grossly intact to radian median ulnar nerve AIN and PIN Pulses 2+, capillary refill less than 2 seconds No deformity noted full range of motion of the elbow shoulder wrist and fingers without pain aside from below Compartments soft, no tenderness to palpation skin intact The right fifth digit is sausage in nature. There is a considerable amount of swelling, redness and a nidus for potential infection on the dorsum of the finger just proximal to the nailbed. He has a intrinsics flexed posture of the finger without ability to extend, severe pain with palpation and attempted e xtension. No drainage. No proximal tracking, no tenderness along the tendon sheath proximally. Results Laboratory Results: 12/03/19 04:10 12/03/19 04:10 12/02/19 12/02/19 12/03/19 17:25 17:25 04:10 WBC 7.6 4.7 RBC 4.70 4.25 L Hgb 15.1 13.8 Hct 42.9 38.8 MCV 91 91 MCH 32.2 32.6 MCHC 35.2 35.6 RDW 14.2 H 14.1 H Plt Count 173 144 L Seg Neutrophils % 68.9 Sodium 136.0 L Potassium 4.6 Chloride 99 Carbon Dioxide 30 Anion Gap 7 BUN 18 Creatinine 1.01 Est GFR ( Amer) > 60 Glucose 131 H Calcium 9.4 Total Bilirubin 1.5 H AST 33 Alkaline Phosphatase 80 C-Reactive Protein 10.0 Total Protein 8.0 Albumin 4.6 12/03/19 04:10 WBC RBC Hgb Hct MCV MCH MCHC RDW Plt Count Seg Neutrophils % Sodium 136.2 L Potassium 4.0 Chloride 100 Carbon Dioxide 28 Anion Gap 8 BUN 15 Creatinine 0.89 Est GFR ( Amer) > 60 Glucose 96 Calcium 8.9 Total Bilirubin AST Alkaline Phosphatase C-Reactive Protein Total Protein Albumin Impressions: Hand X-Ray 12/02/19 17:13 IMPRESSION: PROGRESSIVE EROSIVE CHANGES IN THE MIDDLE PHALANX AND DISTAL PHALANX OF THE 5TH FINGER WITH DEVELOPMENT OF A PATHOLOGIC FRACTURE THROUGH THE DISTAL PHALANX. ASSOCIATED SOFT TISSUE SWELLING. DIFFERENTIAL INCLUDES INF ECTION WITH OSTEOMYELITIS VERSUS INFLAMMATORY EROSIVE ARTHROPATHY. Assessment & Plan - Diagnosis (2) Pathological fracture, right finger(s), initial encounter for fracture Is this a current diagnosis for this admission?: Yes Plan: - The patient has a pathologic fracture that has developed in the interval, potentially associated with infection or gout. He does have a remote history of gout. - Will take to OR for I&D and potential amputation given bony involvement or findings at the time of surgery - Keep antibiotics until cultures return - Consider adding colchicine or other acute gout medicine - Pain control (3) Cellulitis Qualifiers: Site of cellulitis: extremity Site of cellulitis of extremity: finger Laterality: right Qualified Code(s): L03.011 - Cellulitis of right finger Is this a current diagnosis for this admission?: Yes
--- NOTE | 2019-12-03 16:08 | Operative Report ---
Operative Report DATE OF SURGERY: 12/03/19 PREOPERATIVE DIAGNOSIS: Right fifth digit deep infection, potential gouty arthr itis with pathologic fracture. POSTOPERATIVE DIAGNOSIS: Right fifth digit deep infection, potential gouty arthritis with pathologic fracture. OPERATION: Right fifth digit incision and debridement SURGEON: BRITTANIE MARRERO JR ANESTHESIA: Moderate Sedation TISSUE REMOVED OR ALTERED: Cultures COMPLICATIONS: None ESTIMATED BLOOD LOSS: Minimal PROCEDURE: Patient was brought to the operating suite and laid supine on the operating table. They are placed under moderate sedation. The right upper extremity was prepped and draped in standard sterile fashion. There are continuous antibiotics at the time. Area was exsanguinated with Esmarch and the Esmarch was used as tourniquet at the level of the forearm. Additionally a Huntington drain was used at level of the fingers for further hemostatic control. A dorsal incision was made at the apex of the nidus. Upon making incision a sindy amount of purulent appearing fluid was expressed with with associated appearance of gouty tophus. This was then sent for culture. The wound was thoroughly explored with a blunt probe followed by a gentle curetting of the void. Much of the bone of the distal phalanx was involved and not much remained after gentle exploration. Any potential necrotic tissue was expressed. The wound was copiously irrigated with sterile saline solution. The wound was left open, consisting of approximately a centimeter to a centimeter and half incision, and dressed with a clean dry dressing. Due to the gouty appearance, the decision to amputate was aborted and we will further evaluate the patient for ongoing control and potential infection postoperatively. Patient was then awakened from anesthesia and transferred to PACU in stable condition.
--- NOTE | 2019-12-03 16:29 | PDOC PROGRESS REPORT ---
Subjective Progress Note for:: 12/03/19 Subjective:: Patient states that his finger pain feel better. Denies any fevers. Reason For Visit: RIGHT 5TH FINGER OSTEOMYELITIS Physical Exam Vital Signs: Temp Pulse Resp BP Pulse Ox 98.3 F 62 16 97/60 L 94 12/03/19 16:00 12/03/19 16:00 12/03/19 16:00 12/03/19 16:00 12/03/19 16:00 Intake & Output 12/02/19 12/03/19 12/04/19 06:59 06:59 06:59 Intake Total 100 1650 Output Total 5 Balance 100 1645 Weight 81 kg General appearance: PRESENT: no acute distress, cooperative Neck exam: ABSENT: JVD Respiratory exam: PRESENT: symmetrical, unlabored. ABSENT: tachypnea, wheezes Cardiovascular exam: PRESENT: +S1, +S2. ABSENT: tachycardia Extremities exam: PRESENT: other - Right fifth finger wound clean dressing wi thout saturation Neurological exam: PRESENT: alert, awake Results Laboratory Results: 12/03/19 04:10 12/03/19 04:10 12/02/19 12/02/19 12/03/19 17:25 17:25 04:10 WBC 7.6 4.7 RBC 4.70 4.25 L Hgb 15.1 13.8 Hct 42.9 38.8 MCV 91 91 MCH 32.2 32.6 MCHC 35.2 35.6 RDW 14.2 H 14.1 H Plt Count 173 144 L Seg Neutrophils % 68.9 Sodium 136.0 L Potassium 4.6 Chloride 99 Carbon Dioxide 30 Anion Gap 7 BUN 18 Creatinine 1.01 Est GFR ( Amer) > 60 Glucose 131 H Calcium 9.4 Total Bilirubin 1.5 H AST 33 Alkaline Phosphatase 80 C-Reactive Protein 10.0 Total Protein 8.0 Albumin 4.6 12/03/19 04:10 WBC RBC Hgb Hct MCV MCH MCHC RDW Plt Count Seg Neutrophils % Sodium 136.2 L Potassium 4.0 Chloride 100 Carbon Dioxide 28 Anion Gap 8 BUN 15 Creatinine 0.89 Est GFR ( Amer) > 60 Glucose 96 Calcium 8.9 Total Bilirubin AST Alkaline Phosphatase C-Reactive Protein Total Protein Albumin Impressions: Hand X-Ray 12/02/19 17:13 IMPRESSION: PROGRESSIVE EROSIVE CHANGES IN THE MIDDLE PHALANX AND DISTAL PHALANX OF THE 5TH FINGER WITH DEVELOPMENT OF A PATHOLOGIC FRACTURE THROUGH THE DISTAL PHALANX. ASSOCIATED SOFT TISSUE SWELLING. DIFFERENTIAL INCLUDES INFECTION WITH OSTEOMYELITIS VERSUS INFLAMMATORY EROSIVE ARTHROPATHY. Assessment and Plan - Diagnosis (1) Acute gouty arthropathy Is this a current diagnosis for this admission?: Yes Plan: Patient was taken to the OR for I&D by Dr. Graves which revealed chalky substance raising suspicion for gout arthropathy. Culture and Gram stain sent. We will continue antibiotics for arthropathy until he gets fluid Gram stain and culture back. Colchicine load Orthopedics following Pain control (2) Pathological fracture, right finger(s), initial encounter for fracture Is this a current diagnosis for this admission?: Yes Plan: Likely secondary to gout arthropathy. Potential that there could be overlying joint infection too. (3) Atrial fibrillation Qualifiers: Atrial fibrillation type: longstanding persistent Qualified Code(s): I48.11 - Longstanding persistent atrial fibrillation Is this a current diagnosis for this admission?: Yes Plan: He was in sinus rhythm on my examination. Plan to resume Eliquis tomorrow. (4) Cellulitis Qualifiers: Site of cellulitis: extremity Site of cellulitis of extremity: finger Laterality: right Qualified Code(s): L03.011 - Cellulitis of right finger Is this a current diagnosis for this admission?: Yes Plan: Empiric antibiotics as previously noted, will follow up on culture results - Time Time Spent with patient: Less than 15 minutes Anticipated Discharge Disposition: Home, Self Care Anticipated Discharge Timeframe: within 48 hours
[2019-12-03] MEDS ORDERED: COLCHICINE 0.6 MG TABLET PO ONE ×2 (17:00→18:00)
[2019-12-03] MEDS: ATORVASTATIN CALCIUM 40 MG TABLET PO SCH (21:09)
[2019-12-04] MEDS: HYDROCODONE/ACETAMINOPHEN 5-325 MG TABLET PO PRN ×2 (01:39→21:32)
[2019-12-04] MEDS: PIPERACILLIN SODIUM/TAZOBACTAM 3.375 GM in NORMAL SALINE 100 ML IV SCH ×4 (03:20→21:32)
[2019-12-04 06:10] LABS: HEMATOCRIT 40.1 % (37.9-51.0); HEMOGLOBIN 14.3 g/dL (13.5-17.0); MEAN CORPUSCULAR HEMOGLOBIN 32.6 pg (27.0-33.4); MEAN CORPUSCULAR HGB CONC 35.8 g/dL (32.0-36.0); MEAN CORPUSCULAR VOLUME 91 fl (80-97); PLATELET COUNT 139 10^3/uL (150-450); RED BLOOD COUNT 4.39 10^6/uL (4.35-5.55); RED CELL DISTRIBUTION WIDTH 14.6 % (11.5-14.0); WHITE BLOOD COUNT 6.2 10^3/uL (4.0-10.5)
[2019-12-04] MEDS: LEVOTHYROXINE SODIUM 0.075 MG TABLET PO SCH (06:19)
[2019-12-04] MEDS: PANTOPRAZOLE SODIUM 20 MG TABLET.DR PO SCH (06:19)
[2019-12-04 06:36] LABS: ANION GAP 6 (5-19); BLOOD UREA NITROGEN 16 mg/dL (7-20); CALCIUM 9.2 mg/dL (8.4-10.2); CARBON DIOXIDE 28 mmol/L (22-30); CHLORIDE 102 mmol/L (98-107); GLUCOSE 104 mg/dL (75-110); POTASSIUM 4.4 mmol/L (3.6-5.0)
[2019-12-04] MEDS: FUROSEMIDE 20 MG TABLET PO SCH (07:55)
[2019-12-04] MEDS: SPIRONOLACTONE 25 MG TABLET PO SCH (10:14)
[2019-12-04] MEDS: COLCHICINE 0.6 MG TABLET PO SCH ×2 (10:14→17:14)
[2019-12-04] MEDS: VANCOMYCIN HCL 750 MG in DEXTROSE 5%-WATER 250 ML IV SCH (10:15)
[2019-12-04] MEDS: METOPROLOL SUCCINATE 50 MG TAB.SR.24H PO SCH ×2 (10:15→21:32)
[2019-12-04] MEDS: VALSARTAN 80 MG TABLET PO SCH (10:15)
[2019-12-04] MEDS: GABAPENTIN 300 MG CAPSULE PO SCH (10:15)
[2019-12-04 10:42] LABS: VANCOMYCIN,TROUGH 10.1 ug/mL (5.0-20.0)
--- NOTE | 2019-12-04 16:05 | PDOC PROGRESS REPORT ---
Subjective Progress Note for:: 12/04/19 Subjective:: pain at finger at site of procedure. Reason For Visit: RIGHT 5TH FINGER OSTEOMYELITIS Physical Exam Vital Signs: Temp Pulse Resp BP Pulse Ox 97.6 F 57 L 18 130/80 H 99 12/04/19 12:00 12/04/19 14:00 12/04/19 12:00 12/04/19 12:00 12/04/19 12:00 Intake & Output 12/03/19 12/04/19 12/05/19 06:59 06:59 06:59 Intake Total 100 2100 710 Output Total 5 Balance 100 2095 710 Weight 81 kg 80.2 kg General appearance: PRESENT: no acute distress, cooperative Neck exam: ABSENT: JVD Respiratory exam: PRESENT: symmetrical, unlabored. ABSENT: tachypnea, wheezes Neurological exam: PRESENT: alert, awake, oriented to person, oriented to place Results Laboratory Results: 12/04/19 05:42 12/04/19 05:42 12/04/19 12/04/19 05:42 05:42 WBC 6.2 RBC 4.39 Hgb 14.3 Hct 40.1 MCV 91 MCH 32.6 MCHC 35.8 RDW 14.6 H Plt Count 139 L Sodium 136.2 L Potassium 4.4 Chloride 102 Carbon Dioxide 28 Anion Gap 6 BUN 16 Creatinine 0.97 Est GFR ( Amer) > 60 Glucose 104 Calcium 9.2 Impressions: Hand X-Ray 12/02/19 17:13 IMPRESSION: PROGRESSIVE EROSIVE CHANGES IN THE MIDDLE PHALANX AND DISTAL PHALANX OF THE 5TH FINGER WITH DEVELOPMENT OF A PATHOLOGIC FRACTURE THROUGH THE DISTAL PHALANX. ASSOCIATED SOFT TISSUE SWELLING. DIFFERENTIAL INCLUDES INFECTION WITH OSTEOMYELITIS VERSUS INFLAMMATORY EROSIVE ARTHROPATHY. Assessment and Plan - Diagnosis (1) Acute gouty arthropathy Is this a current diagnosis for this admission?: Yes Plan: I&D by Dr. Graves on 12/03/2019 which revealed chalky substance raising suspicion for tophaceous gout arthropathy. Also had purulence noted. Culture and Gram stain sent. We will continue antibiotics for arthropathy until he gets fluid Gram stain and culture back. Colchicine Orthopedics following-we will make a determination about need for continued antibiotics. Pain control Check uric acid. (2) Pathological fracture, right finger(s), initial encounter for fracture Is this a current diagnosis for this admission?: Yes Plan: Likely secondary to gout arthropathy. Potential that there could be overlying joint infection too. (3) Atrial fibrillation Qualifiers: Atrial fibrillation type: longstanding persistent Qualified Code(s): I48.11 - Longstanding persistent atrial fibrillation Is this a current diagnosis for this admission?: Yes Plan: He was in sinus rhythm on my examination. Plan to resume Eliquis tomorrow. (4) Cellulitis Qualifiers: Site of cellulitis: extremity Site of cellulitis of extremity: finger Laterality: right Qualified Code(s): L03.011 - Cellulitis of right finger Is this a current diagnosis for this admission?: Yes Plan: Empiric antibiotics as previously noted, will follow up on culture results - Time Time Spent with patient: Less than 15 minutes Anticipated Discharge Disposition: Home, Self Care Anticipated Discharge Timeframe: within 48 hours
[2019-12-04] MEDS: VANCOMYCIN HCL 1,000 MG in DEXTROSE 5%-WATER 250 ML IV SCH (17:14)
[2019-12-04] MEDS: ATORVASTATIN CALCIUM 40 MG TABLET PO SCH (21:32)
[2019-12-05] MEDS: PIPERACILLIN SODIUM/TAZOBACTAM 3.375 GM in NORMAL SALINE 100 ML IV SCH ×3 (04:21→14:31)
[2019-12-05] MEDS: LEVOTHYROXINE SODIUM 0.075 MG TABLET PO SCH (05:04)
[2019-12-05] MEDS: PANTOPRAZOLE SODIUM 20 MG TABLET.DR PO SCH (05:04)
[2019-12-05] MEDS: VANCOMYCIN HCL 1,000 MG in DEXTROSE 5%-WATER 250 ML IV SCH ×2 (05:04→17:41)
[2019-12-05 05:19] LABS: HEMATOCRIT 38.8 % (37.9-51.0); HEMOGLOBIN 13.8 g/dL (13.5-17.0); MEAN CORPUSCULAR HEMOGLOBIN 32.3 pg (27.0-33.4); MEAN CORPUSCULAR HGB CONC 35.6 g/dL (32.0-36.0); MEAN CORPUSCULAR VOLUME 91 fl (80-97); PLATELET COUNT 143 10^3/uL (150-450); RED BLOOD COUNT 4.28 10^6/uL (4.35-5.55); RED CELL DISTRIBUTION WIDTH 14.1 % (11.5-14.0); WHITE BLOOD COUNT 4.3 10^3/uL (4.0-10.5)
[2019-12-05 05:38] LABS: ANION GAP 9 (5-19); BLOOD UREA NITROGEN 17 mg/dL (7-20); CALCIUM 8.9 mg/dL (8.4-10.2); CARBON DIOXIDE 27 mmol/L (22-30); CHLORIDE 103 mmol/L (98-107); GLUCOSE 109 mg/dL (75-110); POTASSIUM 3.9 mmol/L (3.6-5.0)
[2019-12-05] MEDS: HYDROCODONE/ACETAMINOPHEN 5-325 MG TABLET PO PRN ×4 (08:08→21:28)
[2019-12-05] MEDS ORDERED: DEXTROSE 50%-WATER 25 GM/50 ML DISP.SYRIN IV PRN ×2 (08:09)
[2019-12-05] MEDS ORDERED: DEXTROSE 40% GEL 15 GM TUBE PO PRN ×2 (08:09)
[2019-12-05] MEDS: FUROSEMIDE 20 MG TABLET PO SCH (08:09)
[2019-12-05] MEDS ORDERED: GLUCAGON,HUMAN RECOMB 1 MG INJ SUBCUT PRN (08:09)
--- NOTE | 2019-12-05 08:14 | PDOC PROGRESS REPORT ---
Subjective Progress Note for:: 12/05/19 Subjective:: Patient seen and examined this morning. No acute events overnight. Reports controlled pain at this time. Reason For Visit: RIGHT 5TH FINGER OSTEOMYELITIS Physical Exam Vital Signs: Temp Pulse Resp BP Pulse Ox 98.7 F 63 16 129/74 H 96 12/05/19 07:12 12/05/19 07:12 12/05/19 07:12 12/05/19 07:12 12/05/19 07:12 Intake & Output 12/04/19 12/05/19 12/06/19 06:59 06:59 06:59 Intake Total 2100 1710 Output Total Balance 2094 1710 Weight 80.2 kg 79 kg Physical Exam: No acute distress, alert and orient x3, Right upper extremity exam -Right fifth digit: Wound clean dry and intact, mild spotting in dressing. Dressing removed today, recurrent gouty fluid able to be expressed. Maceration over the dorsum of the finger. Continued sausage digit appearance with erythema to the MCP joint. This does appear improved over prior exam but only moderately. No proximal tendon tenderness. Sensation and cap refill intact to distal fingertip. Results Laboratory Results: 12/05/19 04:50 12/05/19 04:50 12/05/19 12/05/19 04:50 04:50 WBC 4.3 RBC 4.28 L Hgb 13.8 Hct 38.8 MCV 91 MCH 32.3 MCHC 35.6 RDW 14.1 H Plt Count 143 L Sodium 139.1 Potassium 3.9 Chloride 103 Carbon Dioxide 27 Anion Gap 9 BUN 17 Creatinine 0.96 Est GFR ( Amer) > 60 Glucose 109 Calcium 8.9 Impressions: Hand X-Ray 12/02/19 17:13 IMPRESSION: PROGRESSIVE EROSIVE CHANGES IN THE MIDDLE PHALANX AND DISTAL PHALANX OF THE 5TH FINGER WITH DEVELOPMENT OF A PATHOLOGIC FRACTURE THROUGH THE DISTAL PHALANX. ASSOCIATED SOFT TISSUE SWELLING. DIFFERENTIAL INCLUDES INFECTION WITH OSTEOMYELITIS VERSUS INFLAMMATORY EROSIVE ARTHROPATHY. Assessment & Plan - Diagnosis (2) Pathological fracture, right finger(s), initial encounter for fracture Is this a current diagnosis for this admission?: Yes (3) Cellulitis Qualifiers: Site of cellulitis: extremity Site of cellulitis of extremity: finger Laterality: right Qualified Code(s): L03.011 - Cellulitis of right finger Is this a current diagnosis for this admission?: Yes Plan: -Hold n.p.o. tonight for potential repeat I&D, possible amputation right fifth finger tomorrow. Given the continued appearance of erythema and inflammation, as well as the recurrent drainage, recommend holding patient in house on continued IV antibiotics as well as antigout medication. -Finger pathology may solely be attributable to gout however concerned that blood cultures were positive. We will continue to monitor wound cultures. - Time Time Spent with patient: Less than 15 minutes
[2019-12-05] MEDS: VALSARTAN 80 MG TABLET PO SCH (09:40)
[2019-12-05] MEDS: GABAPENTIN 300 MG CAPSULE PO SCH (09:40)
[2019-12-05] MEDS: SPIRONOLACTONE 25 MG TABLET PO SCH (09:41)
[2019-12-05] MEDS: COLCHICINE 0.6 MG TABLET PO SCH ×2 (09:41→17:40)
[2019-12-05] MEDS: METOPROLOL SUCCINATE 50 MG TAB.SR.24H PO SCH (09:41)
[2019-12-05] MEDS: SODIUM HYPOCHLORITE 0.25% SOLN 473 ML BOTTLE TP SCH ×2 (14:35→17:44)
--- NOTE | 2019-12-05 15:36 | PDOC PROGRESS REPORT ---
Subjective Progress Note for:: 12/05/19 Subjective:: Patient actually feels quite quite well. Not too much pain in his hand. Reason For Visit: RIGHT 5TH FINGER OSTEOMYELITIS Physical Exam Vital Signs: Temp Pulse Resp BP Pulse Ox 98.7 F 55 L 17 100/56 L 93 12/05/19 12:00 12/05/19 14:00 12/05/19 12:00 12/05/19 12:00 12/05/19 12:00 Intake & Output 12/04/19 12/05/19 12/06/19 06:59 06:59 06:59 Intake Total 2100 1710 460 Output Total 5 Balance 2094 1710 460 Weight 80.2 kg 79 kg General appearance: PRESENT: no acute distress, cooperative Neck exam: ABSENT: JVD Respiratory exam: PRESENT: symmetrical, unlabored. ABSENT: tachypnea GI/Abdominal exam: PRESENT: soft. ABSENT: rebound, rigid, tenderness Extremities exam: PRESENT: other - Hand wrapped in clean dressing Neurological exam: PRESENT: alert, awake Results Laboratory Results: 12/05/19 04:50 12/05/19 04:50 12/05/19 12/05/19 12/05/19 04:50 04:50 04:50 WBC 4.3 RBC 4.28 L Hgb 13.8 Hct 38.8 MCV 91 MCH 32.3 MCHC 35.6 RDW 14.1 H Plt Count 143 L Sodium 139.1 Potassium 3.9 Chloride 103 Carbon Dioxide 27 Anion Gap 9 BUN 17 Creatinine 0.96 Est GFR ( Amer) > 60 Glucose 109 Calcium 8.9 C-Reactive Protein 14.9 H 12/02/19 18:09 Blood Blood Culture - Final Staphylococcus Epidermidis Impressions: Hand X-Ray 12/02/19 17:13 IMPRESSION: PROGRESSIVE EROSIVE CHANGES IN THE MIDDLE PHALANX AND DISTAL PHALANX OF THE 5TH FINGER WITH DEVELOPMENT OF A PATHOLOGIC FRACTURE THROUGH THE DISTAL PHALANX. ASSOCIATED SOFT TISSUE SWELLING. DIFFERENTIAL INCLUDES INFECTION WITH OSTEOMYELITIS VERSUS INFLAMMATORY EROSIVE ARTHROPATHY. Assessment and Plan - Diagnosis (1) Acute gouty arthropathy Is this a current diagnosis for this admission?: Yes Plan: I&D by Dr. Graves on 12/03/2019 which revealed chalky substance raising suspicion for tophaceous gout arthropathy. Also had purulence noted. We will continue antibiotics for arthropathy until he gets fluid Gram stain and culture back. Colchicine twice daily Orthopedics following-and planning to take 2 OR tomorrow for revision of wound So far, fluid culture and Gram stain is negative-we will continue to monitor. Blood culture only grows staph epi in 1 out of 4 bottles which had indicate contamination. Essentially negative blood cultures. Pain control Check uric acid. (2) Pathological fracture, right finger(s), initial encounter for fracture Is this a current diagnosis for this admission?: Yes Plan: Likely secondary to gout arthropathy. Potential that there could be overlying joint infection too. (3) Atrial fibrillation Qualifiers: Atrial fibrillation type: longstanding persistent Qualified Code(s): I48.11 - Longstanding persistent atrial fibrillation Is this a current diagnosis for this admission?: Yes Plan: He was in sinus rhythm on my examination. Plan to resume Eliquis following surgical exploration tomorrow. (4) Cellulitis Qualifiers: Site of cellulitis: extremity Site of cellulitis of extremity: finger Laterality: right Qualified Code(s): L03.011 - Cellulitis of right finger Is this a current diagnosis for this admission?: Yes Plan: Empiric antibiotics as previously noted, will follow up on culture results - Time Time Spent with patient: Less than 15 minutes Anticipated Discharge Disposition: Home, Self Care Anticipated Discharge Timeframe: within 72 hours
[2019-12-05] MEDS: ATORVASTATIN CALCIUM 40 MG TABLET PO SCH (21:28)
[2019-12-06] MEDS: LEVOTHYROXINE SODIUM 0.075 MG TABLET PO SCH (05:23)
[2019-12-06] MEDS: VANCOMYCIN HCL 1,000 MG in DEXTROSE 5%-WATER 250 ML IV SCH (05:23)
[2019-12-06] MEDS: PANTOPRAZOLE SODIUM 20 MG TABLET.DR PO SCH (05:24)
[2019-12-06 07:20] LABS: VANCOMYCIN,TROUGH 17.5 ug/mL (5.0-20.0)
[2019-12-06] MEDS: FUROSEMIDE 20 MG TABLET PO SCH (08:38)
--- NOTE | 2019-12-06 08:39 | PDOC PROGRESS REPORT ---
Subjective Progress Note for:: 12/06/19 Subjective:: No acute events overnight. Has been soaking TID. Improved pain and drainage. Reason For Visit: RIGHT 5TH FINGER OSTEOMYELITIS Physical Exam Vital Signs: Temp Pulse Resp BP Pulse Ox 97.8 F 82 17 129/72 H 95 12/05/19 23:26 12/06/19 06:58 12/05/19 23:26 12/05/19 23:26 12/05/19 23:26 Intake & Output 12/05/19 12/06/19 12/07/19 06:59 06:59 06:59 Intake Total 1710 1226 Balance 1710 1226 Weight 79 kg 79.1 kg Physical Exam: NAD, AOX3 RUE - 5th digit swelling and erythema improved. Drainage this AM is serosanguinous. - Overall improvement in appearance, regression of cellulitic appearance. - Sensation and capillary refill intact distally Results Laboratory Results: 12/05/19 04:50 12/05/19 04:50 12/05/19 12/05/19 04:50 04:50 Uric Acid 5.2 C-Reactive Protein 14.9 H 12/02/19 18:09 Blood Blood Culture - Final Staphylococcus Epidermidis Impressions: Hand X-Ray 12/02/19 17:13 IMPRESSION: PROGRESSIVE EROSIVE CHANGES IN THE MIDDLE PHALANX AND DISTAL PHALANX OF THE 5TH FINGER WITH DEVELOPMENT OF A PATHOLOGIC FRACTURE THROUGH THE DISTAL PHALANX. ASSOCIATED SOFT TISSUE SWELLING. DIFFERENTIAL INCLUDES INFECTION WITH OSTEOMYELITIS VERSUS INFLAMMATORY EROSIVE ARTHROPATHY. Assessment & Plan - Diagnosis (2) Pathological fracture, right finger(s), initial encounter for fracture Is this a current diagnosis for this admission?: Yes Plan: - At this time he appears to be improving - Given his appearance in the OR, may have been gout complicated with infection, however cultures are negative. I recommend treating for both and we will see him in the office this Friday to monitor for improvement or any further potential surgical needs - Continue BID max goldberg - Follow-up with Dr. Wander Graves, orthopedic surgeon at [facility] for surgery this Friday. Call for an appointment. . [address], [place] [address] (3) Cellulitis Qualifiers: Site of cellulitis: extremity Site of cellulitis of extremity: finger Laterality: right Qualified Code(s): L03.011 - Cellulitis of right finger Is this a current diagnosis for this admission?: Yes - Time Time Spent with patient: Less than 15 minutes
[2019-12-06] MEDS: SPIRONOLACTONE 25 MG TABLET PO SCH (09:01)
[2019-12-06] MEDS: GABAPENTIN 300 MG CAPSULE PO SCH (09:01)
[2019-12-06] MEDS: COLCHICINE 0.6 MG TABLET PO SCH (09:01)
[2019-12-06] MEDS: METOPROLOL SUCCINATE 50 MG TAB.SR.24H PO SCH (09:01)
[2019-12-06] MEDS: SODIUM HYPOCHLORITE 0.25% SOLN 473 ML BOTTLE TP SCH (09:02)
[2019-12-06] MEDS: VALSARTAN 80 MG TABLET PO SCH (09:02)
--- NOTE | 2019-12-06 10:37 | PDOC DISCHARGE SUMMARY ---
Impression - Admit/DC Date/PCP Admission Date/Primary Care Provider: 12/02/19 20:01 JUDITH EDOUARD MD Discharge Date: 12/06/19 - Discharge Diagnosis (1) Abscess of finger, right Is this a current diagnosis for this admission?: Yes (2) Acute gouty arthropathy Is this a current diagnosis for this admission?: Yes (3) Pathological fracture, right finger(s), initial encounter for fracture Is this a current diagnosis for this admission?: Yes (4) Atrial fibrillation Is this a current diagnosis for this admission?: Yes - Additional Information Resuscitation Status: Full Code Discharge Diet: Cardiac Discharge Activity: Activity As Tolerated Referrals: BRITTANIE GRAVES JR, DO [ACTIVE PROVISIONAL STAFF] - 12[facility] [NO LOCAL MD] - Follow up as needed Prescriptions: Colchicine [Colcrys 0.6 mg Tablet] 0.6 mg PO BID #40 tablet Sodium Hypochlorite [Dakin's 0.25% Soln 473 ml] 1 applic TP TID #1 bottle Doxycycline Hyclate [Vibramycin 100 mg Tablet] 100 mg PO Q12 17 Days #34 tablet Home Medications: Apixaban [Eliquis 5 mg Tablet] 5 mg PO BID 02/08/19 Clopidogrel Bisulfate [Plavix 75 mg Tablet] 75 mg PO DAILY 02/08/19 Furosemide [Lasix 20 mg Tablet] 20 mg PO QAM 02/08/19 Gabapentin 600 mg PO DAILY 02/08/19 Hydrocodone Bit/Acetaminophen [Hydrocodon-Acetaminophen 5-325] 1 each PO DAILY PRN 02/08/19 Metoprolol Succinate [Toprol Xl 50 mg Tab.sr] 50 mg PO QHS 02/08/19 Omeprazole 20 mg PO DAILY 02/08/19 Rosuvastatin Calcium [Crestor 20 mg Tablet] 20 mg PO DAILY 02/08/19 Spironolactone [Aldactone 25 mg Tablet] 25 mg PO DAILY 02/08/19 Valsartan 80 mg PO DAILY 02/08/19 Cabergoline 0.5mg Tablet 0.25 mg PO COLEMAN@1000 12/02/19 Levothyroxine Sodium [Synthroid 0.075 mg Tablet] 0.075 mg PO Q6AM 12/02/19 Metoprolol Succinate [Toprol Xl 50 mg Tab.sr] 100 mg PO DAILY 08/13/20 Testosterone [Androgel] 1.25 gm TD DAILY 12/02/19 Colchicine [Colcrys 0.6 mg Tablet] 0.6 mg PO BID #40 tablet 12/06/19 Doxycycline Hyclate [Vibramycin 100 mg Tablet] 100 mg PO Q12 17 Days #34 tablet 12/06/19 Sodium Hypochlorite [Dakin's 0.25% Soln 473 ml] 1 applic TP TID #1 bottle 12/06/19 History of Present Illiness History of Present Illness: ANA FISHER is a 74 year old male Hospital Course Hospital Course: Patient was evaluated in the hospital after presenting there with swelling in the fifth digit of the right hand. X-ray revealed erosive changes of the middle and distal phalanx as well as pathological fracture. There was initial concern for osteomyelitis. Patient was started on IV antibiotics and orthopedics was consulted. IV pain medications were administered. Patient was taken to the OR for incision and debridement. During the I&D, white pasty substance was expressed from that area as well as some purulence. Dr. 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 Deep wound culture was obtained but both Gram stain and culture have been negative now after 3 days. Patient was started on colchicine initially with a load and is to be continued on colchicine 0.6 mg twice a day[address] Dr. Graves discussed case with me today and after evaluating patient's wound today as recommended that patient is ready for discharge and she will be sent home with Dakin solution to be applied 2-3 times a day for the wound dressing, colchicine and about 2 to 3 weeks worth of oral antibiotics given the purulence/abscess. He advises that the abscess could also be seen in gout but will send him home on antibiotics and he will make adjustments to the duration of antibiotics when he sees him in the clinic on Friday. As such, I will be discharging patient home with doxycycline as he has a sulfa allergy so I cannot discharge on Bactrim. Physical Exam Vital Signs: Temp Pulse Resp BP Pulse Ox 97.5 F 72 19 140/84 H 96 12/06/19 08:39 12/06/19 08:39 12/06/19 08:39 12/06/19 08:39 12/06/19 08:39 Intake & Output 08/12/06/19 12/07/19 06:59 06:59 06:59 Intake Total 1710 1226 Balance 1710 1226 Weight 79 kg 79.1 kg General appearance: PRESENT: no acute distress, cooperative Neck exam: ABSENT: JVD Extremities exam: PRESENT: other - Right fifth digit in clean dressing without blood desaturation Neurological exam: PRESENT: alert, awake, oriented to person, oriented to place, oriented to time Results Laboratory Results: WBC 4.3 10^3/uL (4.0-10.5) 12/05/19 04:50 RBC 4.28 10^6/uL (4.35-5.55) L 12/05/19 04:50 Hgb 13.8 g/dL (13.5-17.0) 12/05/19 04:50 Hct 38.8 % (37.9-51.0) 12/05/19 04:50 MCV 91 fl (80-97) 12/05/19 04:50 MCH 32.3 pg (27.0-33.4) 12/05/19 04:50 MCHC 35.6 g/dL (32.0-36.0) 12/05/19 04:50 RDW 14.1 % (11.5-14.0) H 12/05/19 04:50 Plt Count 143 10^3/uL (150-450) L 12/05/19 04:50 Lymph % (Auto) 20.8 % (13-45) 12/02/19 17:25 Henry % (Auto) 8.2 % (3-13) 12/02/19 17:25 Eos % (Auto) 1.6 % (0-6) 12/02/19 17:25 Baso % (Auto) 0.5 % (0-2) 12/02/19 17:25 Absolute Neuts (auto) 5.3 10^3/uL (1.7-8.2) 12/02/19 17:25 Absolute Lymphs (auto) 1.6 10^3/uL (0.5-4.7) 12/02/19 17:25 Absolute Monos (auto) 0.6 10^3/uL (0.1-1.4) 12/02/19 17:25 Absolute Eos (auto) 0.1 10^3/uL (0.0-0.6) 12/02/19 17:25 Absolute Basos (auto) 0.0 10^3/uL (0.0-0.2) 12/02/19 17:25 Seg Neutrophils % 68.9 % (42-78) 12/02/19 17:25 ESR 22 mm/hr (0-20) H 12/02/19 17:25 PT 14.5 SEC (11.4-15.4) 12/02/19 17:25 INR 1.11 12/02/19 17:25 Sodium 139.1 mmol/L (137-145) 12/05/19 04:50 Potassium 3.9 mmol/L (3.6-5.0) 12/05/19 04:50 Chloride 103 mmol/L (98-107) 12/05/19 04:50 Carbon Dioxide 27 mmol/L (22-30) 12/05/19 04:50 Anion Gap 9 (5-19) 12/05/19 04:50 BUN 17 mg/dL (7-20) 12/05/19 04:50 Creatinine 0.96 mg/dL (0.52-1.25) 12/05/19 04:50 Est GFR ( Amer) > 60 (>60) 12/05/19 04:50 Est GFR (MDRD) Non-Af > 60 (>60) 12/05/19 04:50 Glucose 109 mg/dL (75-110) 12/05/19 04:50 POC Glucose 92 mg/dL (70-110) 12/05/19 15:26 Uric Acid 5.2 mg/dL (3.5-8.5) 12/05/19 04:50 Calcium 8.9 mg/dL (8.4-10.2) 12/05/19 04:50 Total Bilirubin 1.5 mg/dL (0.2-1.3) H 12/02/19 17:25 Direct Bilirubin 0.0 mg/dL (0.0-0.4) 12/02/19 17:25 Neonat Total Bilirubin Not Reportable 12/02/19 17:25 Neonat Direct Bilirubin Not Reportable 12/02/19 17:25 Neonat Indirect Bili Not Reportable 12/02/19 17:25 AST 33 U/L (17-59) 12/02/19 17:25 ALT 27 U/L (<50) 12/02/19 17:25 Alkaline Phosphatase 80 U/L (38-126) 12/02/19 17:25 C-Reactive Protein 14.9 mg/L (<10.0) H 12/05/19 04:50 Total Protein 8.0 g/dL (6.3-8.2) 12/02/19 17:25 Albumin 4.6 g/dL (3.5-5.0) 12/02/19 17:25 Time Trough Drawn 0529 12/06/19 05:29 Vancomycin Trough 17.5 ug/mL (5.0-20.0) 12/06/19 05:29 SARS-CoV-2 (PCR) NEGATIVE (NEGATIVE) 12/02/19 20:00 Impressions: Hand X-Ray 12/02/19 17:13 IMPRESSION: PROGRESSIVE EROSIVE CHANGES IN THE MIDDLE PHALANX AND DISTAL PHALANX OF THE 5TH FINGER WITH DEVELOPMENT OF A PATHOLOGIC FRACTURE THROUGH THE DISTAL PHALANX. ASSOCIATED SOFT TISSUE SWELLING. DIFFERENTIAL INCLUDES INFECTION WITH OSTEOMYELITIS VERSUS INFLAMMATORY EROSIVE ARTHROPATHY. Plan Time Spent: Less than 30 Minutes Stroke Is this a Stroke Patient?: No Acute Heart Failure - Is this a Heart Failure Patient?: No
[2019-12-06 10:45] VITALS: BP 140/84
== END 2019-12-06 11:20 | disposition home or self-care (01) | DRG 580 ==
LOC: ER 15:49 → EH 20:01 → 4S 22:36
PROVIDERS: ADMIT Family Medicine; ATTEND Internal Medicine
PROC: 0PBT0ZZ Excision of Right Finger Phalanx, Open Approach (ICD-10-PCS; principal; 2019-12-03 08:45)
DX: L02.511 Cutaneous abscess of right hand (principal); M84.444A Pathological fracture, right finger(s), initial encounter for fracture; I48.11 Longstanding persistent atrial fibrillation; M10.9 Gout, unspecified; I25.2 Old myocardial infarction; E78.5 Hyperlipidemia, unspecified; K21.9 Gastro-esophageal reflux disease without esophagitis; L03.011 Cellulitis of right finger; Z79.01 Long term (current) use of anticoagulants; Z88.2 Allergy status to sulfonamides; Z79.899 Other long term (current) drug therapy; Z03.818 Encounter for observation for suspected exposure to other biological agents ruled out
CPT/HCPCS: 01830; 36415; 80048; 80053; 80202; 82962; 84550; 85025; 85027; 85610; 85652; 86140; 87040; 87070; 87075; 87077; 87186; 87205; 87635; 96372; 96374; 99285; C9803; J2250; J2270; J2405; J2543; J2704; J3010; J3370; J3490; J7050; J7060